=== PATIENT | male | born 1965 | race Caucasian/White ===

== ENCOUNTER 2018-02-13 05:04 | Emergency (ER) | payer SELFPAY ==
[2018-02-13 05:12] VITALS: BP 126/74; PULSE 68; RESP 18; TEMP 36.6; O2SAT 97
--- NOTE | 2018-02-13 05:24 | W.ED.GENAD ---
Discharge Plan Disposition Patient Disposition: HOME Condition: Stable Discharge Details Chief Complaint: EarProblem Clinical Impression: Acute otitis externa of left ear ED Provider: Jeffery Moroe Home Meds and New Rx's Prescriptions: No Action No Known Home Meds RF: 0 Discharge Instructions Instructions: Otitis Externa (ED) Additional Instructions: Please use the provided Ciprodex twice daily to affected ear for 7 days. Return if you have increasing discomfort or any other acute concerns. Tylenol and/or ibuprofen if needed for pain Medical Decision Making 52-year-old male with left ear pain since Saturday. He says he has had previous otitis externa often brought on by his use of hearing aids. His exam is consistent with recurrent left swimmer's ear. Will treat with Ciprodex. He understands it is a limited course of treatment for 1 week. He will return for any acute concerns otherwise follow-up with primary care physician HPI General Mode of arrival: ambulatory. Date/Time Provider Initiated Documentation: 02/13/18 05:20. Limitations to Documentation: no limitations. Information obtained by: patient. History of Present Illness 52 year old M presents to the emergency department with the chief complaint of Left ear pain, described as moderate, Quality is described as aching, and is localized to the left. Patient reports no radiation. Patient started experiencing this day(s) and it has been constant. No relieving factors improve symptom(s), No exacerbating factors reported . Related Data Home Medications Medication Instructions Recorded Confirmed Unknown [No Known Home Meds] 02/13/18 02/13/18 Allergies Allergy/AdvReac Type Severity Reaction Status Date / Time codeine Allergy Mild Other (See Unverified 02/13/18 05:22 Comment) morphine Allergy Mild Other (See Unverified 02/13/18 05:22 Comment) General Stated Complaint: EarProblem MICHELLE: 4 Review of Systems Review of Systems 5 systems reviewed and otherwise neg PFSH Social History Smoking/Tobacco Use Status: Never Exam Narrative Exam Narrative: GEN: awake, alert, oriented 3. Pleasant, well groomed, interactive. HEAD: Normocephalic, atraumatic ENT: Mucous membranes moist, oropharynx unremarkable, External ear exam reveals swollen and cobblestoned left external ear canal. Right external ear canal unremarkable EYES: PERRL, EOMI EXT: Full ROM, no edema, no rash Neuro: Grossly normal neurologic exam, conversant, interactive. Psych: Speech fluent, thoughts congruent, affect normal Course Vital Signs Temperature 36.6 C 02/13/18 05:12 Pulse 68 02/13/18 05:12 Respiratory Rate 18 02/13/18 05:12 Blood Pressure 126/74 02/13/18 05:12 Pulse Oximetry 97 02/13/18 05:12 Temperature 36.6 C 02/13/18 05:12 Temperature Source Temporal Artery Scan 02/13/18 05:12 Pulse 68 02/13/18 05:12 Respiratory Rate 18 02/13/18 05:12 Respiratory Effort 02/13/18 05:12 Blood Pressure 126/74 02/13/18 05:12 Pulse Oximetry 97 02/13/18 05:12 Oxygen Delivery Method Room Air 02/13/18 05:12 Oxygen Flow Rate 0 02/13/18 05:12 Pain Level 3 02/13/18 05:19
--- NOTE | 2018-02-13 05:27 | ED.GENADUL_ITS ---
Discharge Plan Disposition Patient Disposition: HOME Condition: Stable Discharge Details Chief Complaint: EarProblem Clinical Impression: Acute otitis externa of left ear ED Provider: Jeffery Moore Home Meds and New Rx's Prescriptions: No Action No Known Home Meds RF: 0 Discharge Instructions Instructions: Otitis Externa (ED) Additional Instructions: Please use the provided Ciprodex twice daily to affected ear for 7 days. Return if you have increasing discomfort or any other acute concerns. Tylenol and/or ibuprofen if needed for pain Medical Decision Making 52-year-old male with left ear pain since Saturday. He says he has had previous otitis externa often brought on by his use of hearing aids. His exam is consistent with recurrent left swimmer's ear. Will treat with Ciprodex. He understands it is a limited course of treatment for 1 week. He will return for any acute concerns otherwise follow-up with primary care physician HPI General Mode of arrival: ambulatory . Date/Time Provider Initiated Documentation: 02/13/18 05:20 . Limitations to Documentation: no limitations . Information obtained by: patient . History of Present Illness 52 year old M presents to the emergency department with the chief complaint of Left ear pain, described as moderate, Quality is described as aching, and is localized to the left. Patient reports no radiation. Patient started experiencing this day(s) and it has been constant. No relieving factors improve symptom(s), No exacerbating factors reported . Related Data Home Medications Medication Instructions Recorded Confirmed Unknown [No Known Home Meds] 02/13/18 02/13/18 Allergies Allergy/AdvReac Type Severity Reaction Status Date / Time codeine Allergy Mild Other (See Unverified 02/13/18 05:22 Comment) morphine Allergy Mild Other (See Unverified 02/13/18 05:22 Comment) General Stated Complaint: EarProblem MICHELLE: 4 Review of Systems Review of Systems 5 systems reviewed and otherwise neg PFSH Social History Smoking/Tobacco Use Status: Never Exam Narrative Exam Narrative: GEN: awake, alert, oriented 3. Pleasant, well groomed, interactive. HEAD: Normocephalic, atraumatic ENT: Mucous membranes moist, oropharynx unremarkable, External ear exam reveals swollen and cobblestoned left external ear canal. Right external ear canal unremarkable EYES: PERRL, EOMI EXT: Full ROM, no edema, no rash Neuro: Grossly normal neurologic exam, conversant, interactive. Psych: Speech fluent, thoughts congruent, affect normal Course Vital Signs Temperature 36.6 C 02/13/18 05:12 Pulse 68 02/13/18 05:12 Respiratory Rate 18 02/13/18 05:12 Blood Pressure 126/74 02/13/18 05:12 Pulse Oximetry 97 02/13/18 05:12 Temperature 36.6 C 02/13/18 05:12 Temperature Source Temporal Artery Scan 02/13/18 05:12 Pulse 68 02/13/18 05:12 Respiratory Rate 18 02/13/18 05:12 Respiratory Effort 02/13/18 05:12 Blood Pressure 126/74 02/13/18 05:12 Pulse Oximetry 97 02/13/18 05:12 Oxygen Delivery Method Room Air 02/13/18 05:12 Oxygen Flow Rate 0 02/13/18 05:12 Pain Level 3 02/13/18 05:19
[2018-02-13] MEDS: Ciprofloxacin/Dexameth. 7.5 ML BTL AS (05:50)
== END 2018-02-13 05:54 | disposition home or self-care (01) ==
PROVIDERS: Emergency Provider Emergency Medicine
DX: H60.502 Unspecified acute noninfective otitis externa, left ear (principal)
CPT/HCPCS: 99283